=== PATIENT | male | born 1990 | race Caucasian/White ===

== ENCOUNTER 2017-06-26 14:46 | Emergency (ER) | payer BC ==
[2017-06-26 15:10] VITALS: BP 141/81
--- NOTE | 2017-06-26 16:29 | EDM.PDOC ---
ED HPI GENERAL MEDICAL PROBLEM - General Chief Complaint: Chest Pain Stated Complaint: CHEST PAIN Time Seen by Provider: 06/26/17 14:53 Source of Information: Reports: Patient History Limitations: Reports: No Limitations - History of Present Illness INITIAL COMMENTS - FREE TEXT/NARRATIVE: 26-year-old male presents emergency room with complaints of abrupt onset of chest pain, neck pain, and left arm pain. He's had some problems in the past with his neck and has seen chiropractic treatments which have been helpful both for his neck and headaches. Today at work he had abrupt onset of chest pain which he describes as he didn't know if he felt a pop in his chest or if it was in his neck but he soon had numbness and tingling in his left arm extending into the long ring and fifth fingers. This made him quite anxious and presents to the emergency room for further evaluation. He has no history of cardiac problems or prior chest pain. He denies any history of numbness or tingling in his arm. His neck pain and headaches have been more frequent recently in the last 2 months but chiropractic treatments have been helpful. He denies significant weakness in his arms. He denies jaw pain, stomach pain, or nausea or vomiting. He denies a history of a anxiety. His father's had history of a cardiac, reports an DE at age 52. No other family memory knows of has a history of cardiac problems. No history of stroke. Onset: Today Onset Date: 06/26/17 Onset Time: 13:00 Duration: Hour(s): Location: Reports: Neck, Chest, Upper Extremity, Left, Generalized Quality: Reports: Sharp Severity: Moderate Improves with: Reports: Rest Worsens with: Reports: None Associated Symptoms: Reports: Chest Pain. Denies: Diaphoresis, Headaches, Nausea/Vomiting, Shortness of Breath, Syncope, Weakness Left Chest Pain Score (Numeric/FACES): 8 - Related Data Allergies Allergy/AdvReac Type Severity Reaction Status Date / Time No Known Drug Allergies Allergy Cannot Verified 06/26/17 15:00 Remember Home Meds: Home Meds . [No Known Home Meds] 06/26/17 [History] Past Medical History - Infectious Disease History Infectious Disease History: Reports: Chicken Pox Social & Family History - Tobacco Use Smoking Status *Q: Current Every Day Smoker Years of Tobacco use: 20 Packs/Tins Daily: 1 - Caffeine Use Caffeine Use: Reports: Soda Other Caffeine Use: regular pop daily - Recreational Drug Use Recreational Drug Use: No ED ROS GENERAL - Review of Systems Review Of Systems: See Below Constitutional: Reports: No Symptoms HEENT: Reports: No Symptoms Respiratory: Reports: No Symptoms Cardiovascular: Reports: Chest Pain. Denies: No Symptoms, Lightheadedness, Orthopnea, Palpitations, Syncope Endocrine: Reports: No Symptoms GI/Abdominal: Reports: No Symptoms : Reports: No Symptoms Musculoskeletal: Reports: Neck Pain, Other (left arm numbness) Skin: Reports: No Symptoms Neurological: Reports: Numbness (left arm). Denies: Paresthesia, Trouble Speaking, Difficulty Walking, Weakness, Gait Disturbance Psychiatric: Reports: Anxiety (today) Hematologic/Lymphatic: Reports: No Symptoms Immunologic: Reports: No Symptoms ED EXAM, GENERAL - Physical Exam Exam: See Below Exam Limited By: No Limitations General Appearance: Alert, WD/WN, Anxious Eye Exam: Bilateral Eye: EOMI, PERRL Throat/Mouth: Normal Inspection, Normal Lips, Normal Teeth, Normal Gums, Normal Oropharynx, Normal Voice, No Airway Compromise Head: Atraumatic, Normocephalic Neck: Normal Inspection, Supple, Non-Tender, Full Range of Motion Respiratory/Chest: No Respiratory Distress, Lungs Clear, Normal Breath Sounds, No Accessory Muscle Use, Chest Non-Tender Cardiovascular: Normal Peripheral Pulses, Regular Rate, Rhythm, No Edema, No Murmur Peripheral Pulses: 2+: Carotid (L), Carotid (R), Brachial (L), Brachial (R), Radial (L), Radial (R) GI/Abdominal: Normal Bowel Sounds, Soft, Non-Tender, No Abnormal Bruit Back Exam: Normal Inspection, Full Range of Motion. No: Muscle Spasm, Paraspinal Tenderness, Vertebral Tenderness Extremities: Normal Inspection, Normal Range of Motion, Non-Tender, No Pedal Edema, Normal Capillary Refill, Other (bilateral upper extremity and lower extremity are 5 out of 5 throughout with stress manual muscle testing) Neurological: Alert, Oriented, CN II-XII Intact, Normal Cognition, Normal Gait, Normal Reflexes, No Motor/Sensory Deficits, Memory Loss Remote Events, Other ( positive Tinel's at the left elbow, Marvin's negative bilaterally, Phalen's negative bilaterally, clonus absent) Psychiatric: Normal Affect, Normal Mood Skin Exam: Warm, Dry, Intact, Normal Color, No Rash Lymphatic: No Adenopathy EKG INTERPRETATION EKG Date: 06/26/17 Time: 14:50 Rhythm: NSR Rate (Beats/Min): 69 Pringle: Normal P-Wave: Present QRS: Normal ST-T: Normal QT: Normal Comparison: NA - No Prior EKG EKG Interpretation Comments: Normal sinus rhythm with sinus arrhythmia possible left atrial enlargement Course - Vital Signs Last Recorded V/S: Last Vital Signs Temp 98.3 F 06/26/17 14:56 Pulse 76 06/26/17 15:03 Resp 20 06/26/17 15:03 BP 141/81 H 06/26/17 15:03 Pulse Ox 97 06/26/17 15:03 - Orders/Labs/Meds Orders: Active Orders 24 hr Category Date Time Status EKG Documentation Completion [RC] ASDIRECTED Care 06/26/17 15:20 Active Cervical Spine 2V or 3V [CR] Stat Exams 06/26/17 15:21 Taken EKG 12 Lead [EK] Routine Ther 06/26/17 15:20 Ordered Labs: Laboratory Tests 06/26/17 06/26/17 06/26/17 Range/Units 15:30 15:30 15:30 WBC 7.5 (5.0-10.0) 10^3/uL RBC 4.67 (4.50-6.00) 10^6/uL Hgb 14.6 (13.0-17.0) g/dL Hct 42.5 (40.0-52.0) % MCV 91.1 (82.0-92.0) fL MCH 31.3 H (27.0-31.0) pg MCHC 34.4 (32.0-36.0) g/dL RDW 12.2 (11.5-14.5) % Plt Count 183 (150-300) 10^3/uL MPV 8.6 (7.4-10.4) fL Neut % (Auto) 76.7 H (50.0-70.0) % Lymph % (Auto) 14.7 L (20.0-40.0) % [place] % (Auto) 6.9 (2.0-8.0) % Eos % (Auto) 1.0 (1.0-3.0) % Baso % (Auto) 0.7 (0.0-1.0) % Neut # (Auto) 5.7 (2.5-7.0) 10^3/uL Lymph # (Auto) 1.1 (1.0-4.0) 10^3/uL [place] # (Auto) 0.5 (0.1-0.8) 10^3/uL Eos # (Auto) 0.1 (0.1-0.3) 10^3/uL Baso # (Auto) 0.1 (0.0-0.1) 10^3/uL D-Dimer, Quantitative < 100 (<400) ng/mL Troponin I 0.05 (0.00-0.070) ng/mL - Re-Assessments/Exams Free Text/Narrative Re-Assessment/Exam: 06/26/17 16:44 Patient reports symptoms have resolved for chest pain, neck pain, left arm numbness Departure - Departure Time of Disposition: 16:30 Disposition: Home, Self-Care 01 Condition: Good Clinical Impression: Nonspecific chest pain, Neck pain, musculoskeletal, Numbness and tingling in left arm Instructions: Nonspecific Chest Pain, [id number], Cervical Radiculopathy, [id number] Referrals: PCP,None [Primary Care Provider] - Forms: ED Department Discharge Additional Instructions: 1. Patient may continue with chiropractic treatments for his headaches and neck pain. 2. If numbness and symptoms persist in the left arm would recommend further evaluation to workup for radicular neck pain versus a peripheral nerve neuropathy. 3. If chest pain should return patient should be seen immediately evaluation. May require further workup with cardiology. -Patient should return if chest discomfort last greater than 5 minutes -Chest discomfort gets worse in any way -Shortness of breath, sweats, dizziness, vomiting or nausea with chest pain or chest discomfort -Chest discomfort moves into her arm, neck, back, jaw, or stomach - Problem List Review Problem List Initiated/Reviewed/Updated: Yes - My Orders Last 24 Hours: My Active Orders 06/26/17 15:20 EKG Documentation Completion [RC] ASDIRECTED EKG 12 Lead [EK] Routine 06/26/17 15:21 Cervical Spine 2V or 3V [CR] Stat - Assessment/Plan Last 24 Hours: My Active Orders 08/04/17 15:20 EKG Documentation Completion [RC] ASDIRECTED EKG 12 Lead [EK] Routine 06/26/17 15:21 Cervical Spine 2V or 3V [CR] Stat Assessment:: 1. Neck pain muscle skeletal 2. unspecific chest pain 3. Left arm numbness and tingling Plan: 1. Patient may continue with chiropractic treatments for his headaches and neck pain. 2. If numbness and symptoms persist in the left arm would recommend further evaluation to workup for radicular neck pain versus a peripheral nerve neuropathy. 3. If chest pain should return patient should be seen immediately evaluation. May require further workup with cardiology. -Patient should return if chest discomfort last greater than 5 minutes -Chest discomfort gets worse in any way -Shortness of breath, sweats, dizziness, vomiting or nausea with chest pain or chest discomfort -Chest discomfort moves into her arm, neck, back, jaw, or stomach
== END 2017-06-26 16:30 | disposition home or self-care (01) ==
LOC: KA.ED 14:46
DX: R07.9 Chest pain, unspecified (principal); M54.2 Cervicalgia; F17.210 Nicotine dependence, cigarettes, uncomplicated; R20.0 Anesthesia of skin
CPT/HCPCS: 36415; 72040; 84484; 85025; 85379; 93005; 99285